=== PATIENT | male | born 2000 | race Two or more races ===

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

== ENCOUNTER 2019-02-14 04:13 | Emergency (ER) | payer OTHER ==
[2019-02-14 04:21] VITALS: BP 158/72; PULSE 78; TEMP 98.8; BMI 22.2
[2019-02-14] MEDS ORDERED: ACETAMINOPHEN 325 MG TABLET (FP) PO ONE (04:26)
[2019-02-14] MEDS ORDERED: oxyCODONE HCL 5 MG TABLET PO ONE (04:26)
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
[2019-02-14] MEDS ORDERED: oxyCODONE HCL 5 MG TABLET ONE (04:33)
[2019-02-14] MEDS ORDERED: ACETAMINOPHEN 325 MG TABLET (FP) ONE (04:33)
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
[2019-02-14] MEDS ORDERED: OXYMETAZOLINE 0.05% NASAL SOLUTION 15 ML BOTTLE NS ONE (05:08)
[2019-02-14] MEDS ORDERED: BACITRACIN 0.9 GM PACKET ONE (06:03)
== END 2019-02-14 06:26 | disposition home or self-care (01) ==
LOC: JER 04:13
DX: S02.2XXA Fracture of nasal bones, initial encounter for closed fracture (principal); W39.XXXA Discharge of firework, initial encounter; Y93.89 Activity, other specified; Y92.410 Unspecified street and highway as the place of occurrence of the external cause; Y99.8 Other external cause status
CPT/HCPCS: 70450-TC; 70486-TC; 99282-25

== ENCOUNTER 2020-07-04 12:36 | Emergency (ER) | payer OTHER ==
[2020-07-04 12:44] VITALS: BP 118/68; PULSE 83; TEMP 98; BMI 21.5
[2020-07-04] MEDS ORDERED: AZITHROMYCIN 500 MG TABLET PO ONE (13:47)
[2020-07-04] MEDS ORDERED: AZITHROMYCIN 250 MG TABLET ONE (13:49)
[2020-07-04 13:53] LABS: PH,URINE 5.5 (5.0-8.0); URINE APPEARANCE CLEAR; URINE BILIRUBIN NEGATIVE (NEGATIVE); URINE COLOR YELLOW; URINE GLUCOSE (UA) NEGATIVE (NEGATIVE); URINE KETONE TRACE (NEGATIVE); URINE LEUK ESTERASE NEGATIVE (NEGATIVE); URINE NITRITE NEGATIVE (NEGATIVE); URINE PROTEIN TRACE (NEGATIVE)
== END 2020-07-04 14:34 | disposition home or self-care (01) ==
LOC: JERFT 12:36
DX: Z20.2 Contact with and (suspected) exposure to infections with a predominantly sexual mode of transmission (principal)
CPT/HCPCS: 36415; 81003; 87491; 87591; 99284-25

== ENCOUNTER 2024-12-13 08:11 | Emergency (ER) | payer OTHER ==
[2024-12-13 08:24] VITALS: BP 128/53; PULSE 89; RESP 20; TEMP 97.9; BMI 25.8
[2024-12-13] MEDS ORDERED: ONDANSETRON *ODT* 4 MG TABLET ONE (09:29)
[2024-12-13] MEDS: ONDANSETRON *ODT* 4 MG TABLET SL ONE (09:31)
[2024-12-13] MEDS: LACTATED RINGERS SOLUTION 1000 ML INFUS.BAG IV ONE (10:14)
[2024-12-13] MEDS: KETOROLAC TROMETHAMINE 15 MG/ML VIAL IVPUSH ONE (10:14)
[2024-12-13] MEDS ORDERED: KETOROLAC TROMETHAMINE 15 MG/ML VIAL ONE (10:21)
[2024-12-13 10:32] LABS: HEMATOCRIT 45.1 % (40.1-51.0); HEMOGLOBIN 15.1 g/dL (13.7-17.5); MCHC 33.5 g/dl (32.3-36.5); MEAN PLT VOLUME 9.9 fl (9.4-12.4); PLATELET COUNT 231 x10^3/uL (163-337); RDW 12.8 % (11.9-15.3)
[2024-12-13 10:51] LABS: POTASSIUM 4.6 mmol/L (3.5-5.1)
[2024-12-13 10:54] LABS: ALBUMIN 4.4 g/dl (3.4-5.0); BLOOD UREA NITROGEN 18.3 mg/dL (7-18)
[2024-12-13 10:57] LABS: CREATININE 1.1 mg/dL (0.55-1.3)
[2024-12-13 10:58] LABS: TOT PROT 7.9 g/dl (6.4-8.2)
[2024-12-13 13:02] LABS: HCV DIAGNOSTIC IN-HOUSE W/RFLX NON-REACTIVE (NONREACTIVE); HIV INTERPRETATION NEGATIVE (NEGATIVE)
== END 2024-12-13 11:34 | disposition home or self-care (01) ==
LOC: JER 08:11
PROC: 3E0333Z Introduction of Anti-inflammatory into Peripheral Vein, Percutaneous Approach (ICD-10-PCS; principal; 2024-12-13)
DX: H66.92 Otitis media, unspecified, left ear (principal); H92.02 Otalgia, left ear; R11.10 Vomiting, unspecified
CPT/HCPCS: 36415; 80053; 83690; 85025; 86803; 87389; 99284-25; Q0162